=== PATIENT | male | born 1935 | race Caucasian/White ===

== ENCOUNTER 2019-11-19 10:54 | Emergency (ER) | payer MEDICARE ==
[~2019-11-19 10:54] MED LIST: APIX5TAB PO; ASPI-1197 PO; ATOR40TA71 PO; DEXL60CA3 PO; DILT-36 PO; DRON400T2 PO; LEVO75TA10 PO; LOSA50TA64 PO; NIAC-8 PO; PRED10TA3 PO; TAMS0.4C32 PO; TRAM-355 PO; TRIA15OI6 TP
[2019-11-19 11:32] LABS: BASOPHILS % (AUTO) 0.9 % (0.0-5.0); EOSINOPHILS % (AUTO) 9.3 % (0.0-8.0); HEMATOCRIT 35.7 % (42-54); LYMPHOCYTES % (AUTO) 15.8 % (21.0-51.0); MEAN CORPUSCULAR HEMOGLOBIN 30.5 pg (27.0-33.0); MEAN CORPUSCULAR HGB CONC 32.5 g/dL (32.0-36.0); MEAN CORPUSCULAR VOLUME 93.9 fL (79-99); MONOCYTES % (AUTO) 9.7 % (3.0-13.0); NEUTROPHILS % (AUTO) 64.1 % (40.0-77.0); PLATELET COUNT (AUTO) 200 K/uL (130-400); RED CELL DISTRIBUTION WIDTH 14.5 % (11.0-15.5); WHITE BLOOD COUNT (AUTO) 8.6 K/uL (4.8-10.8)
[2019-11-19 11:38] LABS: CREATININE 2.2 mg/dL (0.5-1.5); POTASSIUM 4.1 mmol/L (3.5-5.1)
[2019-11-19 11:44] LABS: ALBUMIN 3.4 g/dL (3.5-5.0); BILIRUBIN,TOTAL 0.5 mg/dL (0.2-1.0); TOTAL PROTEIN, SERUM 7.1 g/dL (6.0-8.3)
[2019-11-19 11:55] LABS: CREATINE KINASE, TOTAL 118 U/L (21-232); MYOGLOBIN 109 ng/mL (10-92); TROPONIN I < 0.04 ng/mL (0.00-0.06)
[2019-11-19 11:56] LABS: INR 1.07 (0.85-1.15); PARTIAL THROMBOPLASTIN TIME 30.3 SEC (26.3-35.5); PROTHROMBIN TIME 11.2 SEC (9.6-11.6)
== END 2019-11-19 13:03 | disposition left against medical advice (07) ==
LOC: EDH 10:54
DX: G45.9 Transient cerebral ischemic attack, unspecified (principal); N19 Unspecified kidney failure; I10 Essential (primary) hypertension
CPT/HCPCS: 36415; 70450; 80053; 82550; 82948; 83721; 83874; 84484; 85025; 85610; 85730; 93005